=== PATIENT | male | born 1975 | race Caucasian/White ===

== ENCOUNTER 2019-02-20 21:07 | Emergency (ER) | payer OTHER ==
[~2019-02-20] VITALS: Ht 195.6 cm; Wt 131.5 kg
[~2019-02-20 21:07] MED LIST: Pepcid20 MG PO; Prednisone20 MG PO
== END 2019-02-20 22:18 | disposition home or self-care (01) ==
LOC: ER 21:07
DX: S01.81XA Laceration without foreign body of other part of head, initial encounter (principal); Z87.891 Personal history of nicotine dependence; Z88.0 Allergy status to penicillin; W22.8XXA Striking against or struck by other objects, initial encounter; Y99.0 Civilian activity done for income or pay
CPT/HCPCS: 12002; 90471; 90714; 99282-25